=== PATIENT | female | born 1965 | race Caucasian/White ===

== ENCOUNTER 2017-12-02 09:10 | Emergency (ER) | payer OTHER ==
[~2017-12-02] VITALS: Ht 152.4 cm; Wt 90.7 kg
[2017-12-02] MEDS ORDERED: ALLEGRA ALLERGY60 M2 PO (09:18)
[2017-12-02] MEDS ORDERED: PREDNISONE20 M1 PO (09:30)
== END 2017-12-02 10:35 | disposition home or self-care (01) ==
LOC: ED 09:10
DX: L23.9 Allergic contact dermatitis, unspecified cause (principal); Z79.899 Other long term (current) drug therapy

== ENCOUNTER → 2021-02-23 | Outpatient (CLI) | payer BC ==
[~2021-02-23] MED LIST: ALLEGRA ALLERGY60 M2 PO; PREDNISONE20 M1 PO
== END | disposition home or self-care (01) ==
LOC: COVID19 16:47
PROVIDERS: ATTEND Internal Medicine
DX: U07.1 COVID-19 (principal)